=== PATIENT | female | born 1990 | race Caucasian/White ===

== ENCOUNTER → 2016-08-15 | Outpatient (CLI) | payer MEDICAID ==
[~2016-08-15] MED LIST: AMOXICILLIN 50500 MG PO; DARVOCET N; DARVOCET N PO; PREDNISONE10 MG PO; PRENATAL1 TA1 PO; TYLENOL W/COD1 UDTAB PO
== END ==
LOC: MHCPAIN 10:35
DX: G89.29 Other chronic pain (principal); M47.817 Spondylosis without myelopathy or radiculopathy, lumbosacral region; M53.3 Sacrococcygeal disorders, not elsewhere classified; F17.210 Nicotine dependence, cigarettes, uncomplicated
CPT/HCPCS: G0463

== ENCOUNTER → 2016-08-22 | Outpatient (CLI) | payer MEDICAID | LOC: COL.RAD 12:54 | DX: M43.17 Spondylolisthesis, lumbosacral region (principal) ==

== ENCOUNTER → 2016-09-14 | Outpatient (CLI) | payer MEDICAID | LOC: MHCPAIN 10:59 | DX: G89.29 Other chronic pain (principal); M47.817 Spondylosis without myelopathy or radiculopathy, lumbosacral region; M54.16 Radiculopathy, lumbar region; M53.3 Sacrococcygeal disorders, not elsewhere classified | CPT/HCPCS: G0463 ==

== ENCOUNTER → 2016-09-27 | Outpatient (CLI) | payer MEDICAID | LOC: MHCPAIN 11:54 | DX: M47.817 Spondylosis without myelopathy or radiculopathy, lumbosacral region (principal) | CPT/HCPCS: A9585; J1100 ==

== ENCOUNTER → 2016-10-31 | Outpatient (CLI) | payer MEDICAID | LOC: MHCPAIN 11:56 | DX: G89.29 Other chronic pain (principal); M47.27 Other spondylosis with radiculopathy, lumbosacral region; F17.200 Nicotine dependence, unspecified, uncomplicated | CPT/HCPCS: G0463 ==

== ENCOUNTER → 2017-01-30 | Outpatient (CLI) | payer MEDICAID | LOC: MHCPAIN 12:07 | DX: G89.29 Other chronic pain (principal); M47.27 Other spondylosis with radiculopathy, lumbosacral region; Z87.891 Personal history of nicotine dependence | CPT/HCPCS: G0463 ==

== ENCOUNTER → 2017-01-30 | Outpatient (CLI) | payer MEDICAID | LOC: COL.RAD 13:21 | DX: M43.17 Spondylolisthesis, lumbosacral region (principal) ==

== ENCOUNTER → 2017-02-14 | Outpatient (CLI) | payer MEDICAID | LOC: MHCPAIN 10:58 | DX: Z53.9 Procedure and treatment not carried out, unspecified reason (principal) | CPT/HCPCS: A9585; J1100; J2250; J3010 ==

== ENCOUNTER → 2017-12-11 | Outpatient (CLI) | payer MEDICAID | LOC: MHCPAIN 15:38 | DX: G89.29 Other chronic pain (principal); M47.817 Spondylosis without myelopathy or radiculopathy, lumbosacral region; M54.16 Radiculopathy, lumbar region; M53.3 Sacrococcygeal disorders, not elsewhere classified | CPT/HCPCS: G0463 ==

== ENCOUNTER → 2023-10-23 | Outpatient (CLI) | payer MEDICAID | LOC: MC.RAD 13:37 | DX: N63.20 Unspecified lump in the left breast, unspecified quadrant (principal); N60.19 Diffuse cystic mastopathy of unspecified breast ==

== ENCOUNTER → 2023-11-05 | Outpatient (CLI) | payer MEDICAID | LOC: MC.RAD 09:44 | DX: N63.20 Unspecified lump in the left breast, unspecified quadrant (principal); R92.8 Other abnormal and inconclusive findings on diagnostic imaging of breast | CPT/HCPCS: A4648 ==